=== PATIENT | female | born 1990 | race Caucasian/White ===

== ENCOUNTER 2017-04-27 14:51 | Emergency (ER) | payer MEDICAID ==
[~2017-04-27] VITALS: Ht 162.6 cm; Wt 56.8 kg
[2017-04-27] MEDS ORDERED: SLEEP PO (15:33)
[2017-04-27] MEDS ORDERED: ESCI10TA PO (15:33)
[2017-04-27] MEDS ORDERED: LEVO88TA4 PO (15:33)
[2017-04-27 17:24] LABS: AMPHET/METH SCREEN,URINE NEGATIVE (NEGATIVE); BARBITURATE SCREEN, URINE NEGATIVE (NEGATIVE); BENZODIAZEPINES SCREEN,URINE NEGATIVE (NEGATIVE); CANNABINOID SCREEN,URINE NEGATIVE (NEGATIVE); COCAINE SCREEN,URINE NEGATIVE (NEGATIVE); METHADONE SCREEN, URINE NEGATIVE (NEGATIVE); OPIATE SCREEN,URINE NEGATIVE (NEGATIVE)
[2017-04-27] MEDS ORDERED: ACETAMINOPHEN 500 MG TABLET PO ONE (17:30)
[2017-04-27 17:33] LABS: PHENCYCLIDINE SCREEN,URINE NEGATIVE (NEGATIVE)
[2017-04-27 18:34] VITALS: BP 107/65
== END 2017-04-27 18:53 | disposition home or self-care (01) ==
LOC: EMS 14:55
DX: R51 Headache (principal); M25.511 Pain in right shoulder; E03.9 Hypothyroidism, unspecified; F41.9 Anxiety disorder, unspecified; Z90.49 Acquired absence of other specified parts of digestive tract; Z88.1 Allergy status to other antibiotic agents; Z79.899 Other long term (current) drug therapy
CPT/HCPCS: 99285

== ENCOUNTER 2017-07-27 20:08 | Emergency (ER) | payer MEDICAID ==
[~2017-07-27] VITALS: Ht 157.5 cm; Wt 59.1 kg
[~2017-07-27 20:08] MED LIST: ESCI10TA PO; LEVO88TA4 PO; SLEEP PO
[2017-07-27] MEDS ORDERED: PROZ10 PO (20:34)
[2017-07-27 21:57] VITALS: BP 112/71
== END 2017-07-27 21:59 | disposition home or self-care (01) ==
LOC: EMS 20:10
DX: J45.909 Unspecified asthma, uncomplicated (principal); M54.2 Cervicalgia; E03.9 Hypothyroidism, unspecified; Z90.49 Acquired absence of other specified parts of digestive tract; Z88.1 Allergy status to other antibiotic agents
CPT/HCPCS: 99283

== ENCOUNTER 2017-10-07 20:21 | Emergency (ER) | payer MEDICAID ==
[~2017-10-07] VITALS: Ht 157.5 cm; Wt 68.2 kg
[~2017-10-07 20:21] MED LIST changes: +PROZ10 PO
[2017-10-07] MEDS ORDERED: CITA-106 PO (20:59)
[2017-10-07] MEDS ORDERED: HydrOXYzine HCL 50 MG TABLET PO ONE (21:45)
[2017-10-07] MEDS ORDERED: MUPIROCIN CALCIUM 2% 22 GM OINTMENT TP ONE (21:45)
[2017-10-07 22:03] VITALS: BP 121/80
== END 2017-10-07 22:08 | disposition home or self-care (01) ==
LOC: EMS 20:21
DX: F41.9 Anxiety disorder, unspecified (principal); E03.9 Hypothyroidism, unspecified; Z88.1 Allergy status to other antibiotic agents
CPT/HCPCS: 99285